=== PATIENT | female | born 1955 | race Caucasian/White ===

== ENCOUNTER 2016-03-14 04:40 | Emergency (ER) | payer BC ==
[~2016-03-14] VITALS: Ht 162.6 cm; Wt 59.0 kg
[2016-03-14] MEDS ORDERED: IV NS 0.9% 1,000 ML ONE (04:56)
[2016-03-14] MEDS ORDERED: HYDROMORPHONE 1 MG/1 ML DISP.SYRIN ONE (04:56)
[2016-03-14] MEDS ORDERED: IV SET PRIMARY 1 EA INFUS.SET MC ONE (04:56)
[2016-03-14] MEDS ORDERED: ONDANSETRON HCL/PF 4 MG/2 ML VIAL ONE (04:56)
[2016-03-14] MEDS ORDERED: ONDANSETRON HCL/PF 4 MG/2 ML VIAL IVP ONE (05:00)
[2016-03-14] MEDS ORDERED: HYDROMORPHONE INJ 2 MG/ML DISP.SYRIN IV ONE (05:00)
[2016-03-14] MEDS ORDERED: IV NS 0.9% 1,000 ML BAG IV ONE (05:00)
[2016-03-14 05:33] LABS: BASOPHILS # (AUTO) 0.1 /CMM (0.0-0.2); BASOPHILS % (AUTO) 0.4 % (0.0-2.0); DIFF TOTAL % 100 %; EOSINOPHILS # (AUTO) 0.6 /CMM (0.0-0.7); EOSINOPHILS % (AUTO) 4.6 % (0.0-6.0); HEMATOCRIT 36 % (33-45); HEMOGLOBIN 12.3 g/dL (11.5-14.8); LYMPHOCYTES # (AUTO) 0.9 /CMM (0.8-4.8); LYMPHOCYTES % (AUTO) 7.3 % (20.0-44.0); MEAN CORPUSCULAR HEMOGLOBIN 31 PG (26.0-33.0); MEAN CORPUSCULAR HGB CONC 34 g/dl (31.0-36.0); MEAN CORPUSCULAR VOLUME 91 fL (82-100); MONOCYTES # (AUTO) 0.4 /CMM (0.1-1.30); NEUTROPHILS % (AUTO) 84.7 % (43.0-81.0); PLATELET COUNT (AUTO) 351 /CMM (150-450); RED BLOOD CELL COUNT(AUTO) 3.98 MIL/uL (4.0-5.2)
[2016-03-14] MEDS ORDERED: IV NS 0.9% 250 ML IV ONE (05:41)
[2016-03-14] MEDS ORDERED: IOHEXOL-300 100 ML VIAL IV ONE (05:41)
[2016-03-14 05:47] LABS: CALCIUM, SERUM 8.5 mg/dL (8.5-10.1); CREATININE 0.6 mg/dL (0.6-1.3); POTASSIUM 3.5 mmol/L (3.5-5.1)
[2016-03-14 05:49] LABS: INR 0.99 (0.87-1.13); PROTHROMBIN TIME 10.7 SECS (9.5-12.7)
[2016-03-14 05:52] LABS: ALBUMIN 3.4 g/dL (3.4-5.0); BILIRUBIN,DIRECT 0.1 mg/dL (0.0-0.2); BILIRUBIN,TOTAL 0.4 mg/dL (0.2-1.0); INDIRECT BILIRUBIN 0.3 mg/dL (0.0-1.1); TOTAL PROTEIN, SERUM 6.7 g/dL (6.4-8.2)
[2016-03-14 09:19] LABS: KETONES,URINE NEGATIVE (NEGATIVE); LEUKOCYTE ESTERASE ,URINE NEGATIVE (NEGATIVE); PH,URINE 5.5 (5.0-8.0)
[2016-03-14 09:22] LABS: ADD UA MICROSCOPIC YES
[2016-03-14 09:26] LABS: ADD URINE CULTURE NO; WBC,URINE 0-2 /HPF (0-3)
[2016-03-14 10:46] VITALS: BP 120/69
== END 2016-03-14 10:55 | disposition home or self-care (01) ==
LOC: ER 04:41
DX: R10.84 Generalized abdominal pain (principal); G89.18 Other acute postprocedural pain; G43.909 Migraine, unspecified, not intractable, without status migrainosus; Z90.710 Acquired absence of both cervix and uterus; Z88.0 Allergy status to penicillin
CPT/HCPCS: 36415; 74160; 80048; 80076; 81001; 83690; 85025; 85730; 96361; 96374; 96375; 99285; A4606; J1170; J2405; J7030; J7050; Q9967; Z7610; 81000-TC